=== PATIENT | female | born 1980 | race African-American/Black ===

== ENCOUNTER 2025-07-02 14:14 | Emergency (ER) | payer BC, MEDICAID ==
[~2025-07-02] VITALS: Ht 172.7 cm; Wt 82.0 kg
[2025-07-02 14:19] VITALS: O2SAT 97
[2025-07-02 15:08] LABS: HEMATOCRIT. 29.8 % (36.0-48.0); HEMOGLOBIN. 9.0 g/dL (12.0-16.0); MEAN PLATELET VOLUME 8.8 fl (7.4-10.4); PLATELET 306 x1000/uL (130-400); RED BLOOD CELL COUNT 4.85 mill/uL (4.2-5.4); RED CELL DISTRIBUTION WIDTH 23.3 % (11.6-14.6)
[2025-07-02] MEDS: KETOROLAC 15MG/ML VIAL IV ONE (15:08)
[2025-07-02] MEDS: SODIUM CHLORIDE 0.9% 1,000 ML IV ONE (15:08)
[2025-07-02 15:25] LABS: CREATININE 0.7 mg/dL (0.6-1.0); INR 1.0
[2025-07-02 15:26] LABS: UREA NITROGEN BLOOD 14 mg/dL (9-23)
[2025-07-02 15:27] LABS: ASPARTATE AMINOTRANSFERASE 21 IU/L (<34)
[2025-07-02 15:28] LABS: BILIRUBIN DIRECT < 0.1 mg/dL (<=3.0); BILIRUBIN TOTAL 0.3 mg/dL (0.1-1.0); PROTEIN TOTAL 6.9 g/dL (6.0-8.3)
[2025-07-02 15:34] LABS: HCG SCREEN NEGATIVE
[2025-07-02] MEDS: TRANEXAMIC ACID 1000MG PREMIX 100 ML IV ONE (15:59)
[2025-07-02] MEDS: MEDROXYPROGESTERONE ACET 5MG TABLET PO SCH (15:59)
[2025-07-02 16:06] LABS: EOSINOPHILS % MANUAL 2.0 % (0.0-5.0); LYMPHOCYTES % MANUAL 34.0 % (20.0-60.0); MONOCYTES % MANUAL 7.0 % (2.0-8.0); NEUTROPHILS % MANUAL 57.0 % (45.0-75.0); PLATELET ESTIMATE NORMAL
[2025-07-02] MEDS ORDERED: MEDR10TA MT (16:28)
[2025-07-02 16:44] VITALS: BP 99/65; PULSE 60; RESP 12; TEMP 36.9; O2SAT 100
== END 2025-07-02 16:51 | disposition home or self-care (01) ==
LOC: ER 14:14 → CMPBEDREQ 07-03 07:22
DX: N93.9 Abnormal uterine and vaginal bleeding, unspecified (principal)
CPT/HCPCS: 99285; 96365; 76830; 76856; 96361; 96375; 80076; 80048; 84703; 85025; 85610; 85730; 36415; J1885; J7030

== ENCOUNTER 2025-07-07 19:13 | Emergency (ER) | payer MEDICAID ==
[~2025-07-07] VITALS: Ht 175.3 cm; Wt 85.0 kg
[~2025-07-07 19:13] MED LIST: MEDR10TA MT
[2025-07-07 20:04] VITALS: O2SAT 100
[2025-07-07] MEDS: SODIUM CHLORIDE 0.9% 1,000 ML IV ONE (21:00)
[2025-07-07] MEDS ORDERED: MORPHINE SULFATE 4 MG/ML INJ (FOR IV/IM USE) IV ONE (21:00)
[2025-07-07] MEDS ORDERED: ONDANSETRON HCL 4MG/2ML INJ IV ONE (21:00)
[2025-07-07 22:42] LABS: HEMATOCRIT. 27.2 % (36.0-48.0); HEMOGLOBIN. 8.1 g/dL (12.0-16.0); MEAN PLATELET VOLUME 8.6 fl (7.4-10.4); PLATELET 372 x1000/uL (130-400); RED BLOOD CELL COUNT 4.35 mill/uL (4.2-5.4); RED CELL DISTRIBUTION WIDTH 24.1 % (11.6-14.6)
[2025-07-07 22:52] LABS: INR 1.0
[2025-07-07 22:53] LABS: HCG SCREEN NEGATIVE
[2025-07-07 22:57] LABS: CREATININE 0.7 mg/dL (0.6-1.0)
[2025-07-07 22:58] LABS: UREA NITROGEN BLOOD 7 mg/dL (9-23)
[2025-07-07 22:58] LABS: CLARITY URINE CLEAR (CLEAR); COLOR URINE YELLOW (YELLOW); GLUCOSE URINE NEGATIVE (NEGATIVE); KETONES URINE NEGATIVE (NEGATIVE); LEUKOCYTE ESTERASE URINE NEGATIVE (NEGATIVE); NITRITE URINE NEGATIVE (NEGATIVE); OCCULT BLOOD URINE 3+ (NEGATIVE); PH URINE 7.5 (4.5-8.0); PROTEIN URINE NEGATIVE (NEGATIVE); SPECIFIC GRAVITY URINE 1.019 (1.005-1.030); UROBILINOGEN URINE 0.2 E.U./dL (0.2-1.0)
[2025-07-07 22:59] LABS: ASPARTATE AMINOTRANSFERASE 15 IU/L (<34)
[2025-07-07 23:00] LABS: BILIRUBIN DIRECT < 0.1 mg/dL (<=3.0); BILIRUBIN TOTAL 0.3 mg/dL (0.1-1.0); PROTEIN TOTAL 7.3 g/dL (6.0-8.3)
[2025-07-07] MEDS: MORPHINE SULFATE 4 MG/ML INJ (FOR IV/IM USE) IV SCH (23:00)
[2025-07-07] MEDS: ONDANSETRON HCL 4MG/2ML INJ IV SCH (23:00)
[2025-07-07 23:03] LABS: LYMPHOCYTES % MANUAL 27.0 % (20.0-60.0); MONOCYTES % MANUAL 5.0 % (2.0-8.0); NEUTROPHILS % MANUAL 68.0 % (45.0-75.0); PLATELET ESTIMATE NORMAL
[2025-07-07 23:16] LABS: BACTERIA URINE TRACE; RBC URINE 15-25 /hpf (0-2); SQUAMOUS EPITHELIAL CELL URINE FEW /lpf (RARE/1+); WBC URINE 0-2 /hpf (0-2)
[2025-07-08] MEDS ORDERED: HYDR-4001 MT (00:47)
[2025-07-08 01:28] VITALS: BP 105/64; PULSE 63; RESP 16; O2SAT 100
== END 2025-07-08 01:34 | disposition home or self-care (01) ==
LOC: ER 19:13
DX: D25.9 Leiomyoma of uterus, unspecified (principal); D50.9 Iron deficiency anemia, unspecified; Z79.3 Long term (current) use of hormonal contraceptives; Z79.890 Hormone replacement therapy; Z86.018 Personal history of other benign neoplasm
CPT/HCPCS: 99285; 96374; 76830; 76856; 96361; 96375; 80076; 80048; 81003; 84703; 85025; 85610; 85730; 36415; J2405; J2270; J7030